=== PATIENT | male | born 1970 | race Caucasian/White ===

== ENCOUNTER 2017-04-12 12:48 | Outpatient (CLI) | payer OTHER | END 2017-04-12 12:49 | disposition home or self-care (01) | DRG 558 | LOC: CONVCARE 12:48 | PROVIDERS: ATTEND Orthopaedic Surgery | DX: M75.41 Impingement syndrome of right shoulder (principal); M77.9 Enthesopathy, unspecified | CPT/HCPCS: 73030 ==